=== PATIENT | male | born 1975 | race Caucasian/White ===

== ENCOUNTER 2022-06-20 07:41 | Outpatient (CLI) | payer BC, SELFPAY ==
[2022-06-20 13:32] LABS: Albumin* 4.4 g/dL (3.3-5.0); Chloride* 103 mmol/L (96-114); Potassium* 4.1 mmol/L (3.6-5.1); Sodium* 140 mmol/L (135-149)
[2022-06-20 13:34] LABS: Bilirubin Total* 0.3 mg/dL (0.1-1.5); Carbon Dioxide* 30 mmol/L (20-32); Cholesterol* 152 mg/dL (90-199); Creatinine* 0.9 mg/dL (0.5-1.5); Estimated Glomerular Filt Rate 105 ml/min
[2022-06-20 13:35] LABS: Alanine Aminotransferase* 40 U/L (4-50); Alkaline Phosphatase* 61 U/L (40-150); Aspartate Amino Transferase* 29 U/L (12-35); Blood Urea Nitrogen* 20 mg/dL (5-24); Calcium* 9.2 mg/dL (8.4-10.6); Glucose* 99 mg/dL (60-115); HDL Cholesterol* 51 mg/dL (>=40); LDL Cholesterol Calculated 76 mg/dL (<100); Total Protein* 7.2 g/dL (6.0-8.3); Triglycerides* 124 mg/dL (40-149)
[2022-06-20 14:06] LABS: PSA Screen* 0.56 ng/mL (0.10-4.00)
== END 2022-06-20 07:42 | disposition home or self-care (01) ==
LOC: FRMLAB 07:41
PROVIDERS: PCP Physician Assistant Medical; Visit Provider Physician Assistant Medical
DX: Z00.00 Encounter for general adult medical examination without abnormal findings (principal); I10 Essential (primary) hypertension; E78.2 Mixed hyperlipidemia; K21.9 Gastro-esophageal reflux disease without esophagitis; Z12.5 Encounter for screening for malignant neoplasm of prostate
CPT/HCPCS: 80053; 80061; 84153

== ENCOUNTER 2023-08-22 08:42 | Outpatient (CLI) | payer BC, SELFPAY | END 2023-08-22 08:43 | disposition home or self-care (01) | LOC: NFLDREF 08-24 20:07 | PROVIDERS: PCP Physician Assistant Medical; Referring Provider Physician Assistant Medical; Visit Provider Physician Assistant Medical | DX: E78.2 Mixed hyperlipidemia (principal); I10 Essential (primary) hypertension; Z12.5 Encounter for screening for malignant neoplasm of prostate | CPT/HCPCS: 80053; 80061; 84153 ==

== ENCOUNTER 2024-02-08 14:52 | Emergency (ER) | payer BC, SELFPAY ==
[2024-02-08 14:56] VITALS: BP 146/78; PULSE 96; RESP 17; TEMP 35.9; O2SAT 96; BMI 34.9
--- NOTE | 2024-02-08 15:08 | ED.ABDPAIN ---
HPI - Abdominal Pain General Time Seen by Provider: 15:08 Date Seen: 02/08/24 Chief Complaint: Abdominal Pain Stated Complaint: abdominal pain right side Time Seen by Provider: 02/08/24 15:08 Source: patient Mode of arrival: ambulatory Limitations: no limitations History of Present Illness HPI narrative: Yimi is a very pleasant 48-year-old gentleman with a history of hypertension, EYAD, longstanding GERD who comes to the emergency room with abdominal pain. Patient notes the onset of abdominal pain this week that has been gradually worsening. Today it has been constant. It is worsened by movement and he notes that he had a lot of pain as he was hitting bumps in the car on the way here. It is also worsened by oral intake. He has not had fever or chills. He denies constipation or diarrhea but does note that his stools have been waxy looking and vp patient in color. He has a remote history of abdominal surgery with a hernia when he was younger. No subsequent problems from this. Denies dysuria or hematuria. Notes that over the past few weeks his GERD has been worse than normal and he has had a really poor taste in his mouth. Does endorse feeling like he is bloated over the last week. Movement definitely increases his discomfort. He is wanting to stay as still as possible. No medications for pain at this point. Last ate at 1000 hours. Was drinking water upon his arrival here. I have asked him to abstain from any p.o. from this point on Related Data Home Medications Medication Instructions Recorded Confirmed aspirin 81 mg chewable tablet 81 mg PO QDAY 06/03/22 08/26/23 cholecalciferol (vitamin D3) 25 25 mcg PO QDAY 06/03/22 08/26/23 mcg (1,000 unit) capsule famotidine 10 mg tablet 10 mg PO QDAY 06/03/22 08/26/23 Previous Rx's Medication Instructions Recorded lisinopril 40 mg tablet 40 mg PO QDAY #30 tabs 01/16/23 simvastatin 20 mg tablet 20 mg PO QPM #90 tabs 08/26/23 omeprazole 20 mg capsule,delayed 20 mg PO QDAY #90 caps 12/16/23 release hydrochlorothiazide 25 mg tablet 25 mg PO QAM #90 tabs 01/02/24 Allergies Allergy/AdvReac Type Severity Reaction Status Date / Time No Known Drug Allergies Allergy Verified 02/08/24 17:36 Review of Systems Status of ROS Reports: 10 or more systems reviewed and unremarkable except as noted in History and below Narrative No personal or familial l problems with anesthesia in the past. Const Denies: fever, chills or change in weight Eyes Denies: change in vision ENMT Denies: throat pain, neck pain or difficulty swallowing Cardio Denies: chest pain or shortness of breath with exertion Resp Reports: cough (Mild and nonproductive); Denies: shortness of breath GI Denies: difficulty swallowing Denies: painful urination or urinary frequency Musculo Denies: neck pain Integ/Breast Denies: rash Neuro Denies: headache PFSH PFSH Medical History Seizure (04/05/10) ?R56.9 - Unspecified convulsions (ICD-10) Cellulitis ?L03.90 - Cellulitis, unspecified (ICD-10) Pedal edema ?R60.0 - Localized edema (ICD-10) Nonhealing ulcer of left lower extremity ?L97.929 - Non-pressure chronic ulcer of unspecified part of left lower leg with unspecified severity (ICD-10) Radial styloid tenosynovitis of left hand ?M65.4 - Radial styloid tenosynovitis [de Quervain] (ICD-10) Left otitis media with effusion ?H65.92 - Unspecified nonsuppurative otitis media, left ear (ICD-10) Headache ?R51.9 - Headache, unspecified (ICD-10) Fatigue ?R53.83 - Other fatigue (ICD-10) Daytime somnolence ?R40.0 - Somnolence (ICD-10) Surgical History History of vasectomy (02/19/10) ?Z98.52 - Vasectomy status (ICD-10) History of third molar tooth extraction ?K08.409 - Partial loss of teeth, unspecified cause, unspecified class (ICD-10) History of right inguinal hernia repair (02/19/10) ?Z98.890 - Other specified postprocedural states (ICD-10) ?Z87.19 - Personal history of other diseases of the digestive system (ICD-10) History of esophagogastroduodenoscopy (EGD) ?Z98.890 - Other specified postprocedural states (ICD-10) History of colonoscopy ?Z98.890 - Other specified postprocedural states (ICD-10) Family History Father Cancer Prostate cancer Maternal Grandmother Coronary artery disease Maternal Grandfather Coronary artery disease Paternal Grandfather Stroke Family/Other Diabetes Other High blood pressure Social History Narrative: Alcohol ingestion, 1-4 drinks/week Does not use illicit drugs Has 2 children Non-smoker Smoking Status: Never smoker How often do you have a drink containing alcohol: monthly or less How often do you have six or more drinks on one occasion: Never AUDIT-C Alcohol total score: 1 Non-prescribed substance use: denies use Little interest or pleasure in doing things: not at all Feeling down, depressed, or hopeless: not at all Exam Narrative: Exam Narrative: Alert and oriented. Very stoic in appearance. External ears eyes nose clear. Oral cavity with moist mucous membranes. Dentition is intact. Posterior oropharynx is clear. Neck is supple without lymphadenopathy. Heart with regular rate and rhythm and lungs are clear. Abdomen shows tenderness right upper quadrant. Positive Gamez sign. Moving all extremities. Bowel sounds are present. Const: Vital Signs, click to edit/add: Vital Signs - 24 hr 02/08/24 14:56 02/08/24 17:55 02/08/24 19:01 Temperature 96.6 F L Pulse Rate [Pulse Oximeter] 96 69 66 Respiratory Rate 17 16 16 Blood Pressure [Ri ght Upper Arm] 146/78 H 120/70 124/77 Pulse Oximetry 96 98 97 Oxygen Delivery Me thod Room Air Room Air Room Air Documenting provider has reviewed patient's vital signs: yes Course Course ED Course: Differential diagnosis includes but is not limited to cholecystitis, cholelithiasis, biliary colic, pancreatitis, gastritis, diverticulitis, colitis. Recommend at this time placement of IV, fluids normal saline 1 L, Toradol 15 mg IV as well as blood draw to include CBC, comprehensive panel, direct bilirubin, lactate . Abdominal ultrasound pending. Reevaluation(s) Reevaluation #1: Abdominal ultrasound negative for acute gallbladder findings. Patient is noted to be somewhat improved with the Toradol. Will order abdominal CT at this time. Vital Signs Vital signs: Initial Vital Signs Temperature 96.6 F L 02/08/24 14:56 Temperature Source Temporal Artery Scan 02/08/24 14:56 Pulse Rate 96 02/08/24 14:56 Respiratory Rate 17 02/08/24 14:56 Blood Pressure 146/78 H 02/08/24 14:56 Blood Pressure Mean 100 02/08/24 14:56 Pulse Oximetry 96 02/08/24 14:56 Oxygen Delivery Method Room Air 02/08/24 14:56 Vital Signs Temperature 96.6 F L 02/08/24 14:56 Pulse Rate 96 02/08/24 14:56 Respiratory Rate 17 02/08/24 14:56 Blood Pressure 146/78 H 02/08/24 14:56 Pulse Oximetry 96 02/08/24 14:56 Oxygen Delivery Method Room Air 02/08/24 14:56 Temperature 96.6 F L 02/08/24 14:56 Pulse Rate 66 02/08/24 19:01 Respiratory Rate 16 02/08/24 19:01 Blood Pressure 124/77 02/08/24 19:01 Pulse Oximetry 97 02/08/24 19:01 Oxygen Delivery Method Room Air 02/08/24 19:01 Medications Administered Medications: Discontinued Medications Generic Name Dose Route Start Last Admin Trade Name Freq PRN Reason Stop Dose Admin Sodium Chloride 1,000 mls @ 1,000 mls/hr 02/08/24 15:36 02/08/24 17:07 0.9 % Sodium Chloride 1000 Ml IV 02/08/24 16:35 Infused .Q1H ALIYA Infusion Ketorolac Tromethamine 15 mg 02/08/24 15:24 02/08/24 15:38 Ketorolac 15 Mg/Ml Inj IVP 02/08/24 15:25 15 mg ONCE ONE Administration MDM - Abdominal Pain MDM Narrative Medical decision making narrative: 1. Abdominal pain-patient's history to strongly suggested biliary colic but an ultrasound was negative, vital signs and laboratory values are reassuring and abdominal CT did not show any evidence of cholecystitis. It did however show increased stool retention. Will treat patient for constipation at this time. He may also have a musculoskeletal component to this discomfort. Have offered Flexeril 10 mg p.o. t.i.d. p.r.n. 15. With no refills out of her [employer] machine. Did state that patient should not drive if using this medication or should be using alcohol as this can be sedating. Given his history of EYAD also recommend his CPAP if on Flexeril even if just napping. Recommend MiraLax twice daily until stools are soft for the increased stool burden. Follow-up with primary MD if not improved. At that time would suggest a HIDA scan to rule out biliary colic. 2. Disposition-home at this time. Return for worsening symptoms and as needed. Prior to discharge given the lack of findings we did do an EKG which showed sinus rhythm without any acute ST or T-wave changes as well as a troponin which was negative. I have very low suspicion that there is underlying cardiac involvement in this but given the fact that we really had no positive test today I felt it cabello to rule this out. Medical Records Attestation: I reviewed the patient's medical records. Lab Data Attestation: I reviewed the patient's lab results. Labs: Lab Results 02/08/24 02/08/24 02/08/24 Range/Units 15:33 15:38 18:50 WBC 7.69 (4.50-11.00) K/uL RBC 4.61 (4.30-5.90) m/uL Hgb 14.2 (13.5-17.5) gm/dL Hct 42.3 (37.0-53.0) % MCV 92 (80-100) fL MCH 31 (26-34) pg MCHC 34 (32-36) gm/dL RDW Coeff of Nena 11.9 (11.5-15.5) % Plt Count 313 (140-440) K/uL Neut % (Auto) 65.2 (42.0-72.0) % Lymph % (Auto) 19.4 L (20-44) % [place] % (Auto) 10.1 (0.0-11.0) % Eos % (Auto) 4.2 (0.0-7.0) % Baso % (Auto) 0.1 (0.0-3.0) % Neut # (Auto) 5.01 (1.7-7.0) K/uL Lymph # (Auto) 1.50 (0.90-2.90) K/uL [place] # (Auto) 0.80 (0.00-0.90) K/UL Eos # (Auto) 0.32 (0.00-0.50) K/uL Baso # (Auto) 0.01 (0.00-0.30) K/uL Abs Immat Gran (auto) 0.08 (0.00-0.30) K/uL Imm/Tot Granulo (auto) 1.0 % Sodium 139 (135-149) mmol/L Potassium 3.8 (3.6-5.1) mmol/L Chloride 102 (96-114) mmol/L Carbon Dioxide 30 (20-32) mmol/L Anion Gap 7 (7-15) mEq/L BUN 17 (7-30) mg/dL Creatinine 0.7 (0.5-1.5) mg/dL Estimated Creat Clear 134.46 Estimated GFR 112 ml/min Glucose 92 (60-115) mg/dL Lactate 1.2 (0.5-1.9) mmol/L Calcium 9.5 (8.4-10.6) mg/dL Total Bilirubin 0.6 (0.1-1.5) mg/dL Direct Bilirubin 0.2 (0.0-0.5) mg/dL AST 28 (12-35) U/L ALT 36 (4-50) U/L Alkaline Phosphatase 61 (40-150) U/L C-Reactive Protein < 0.5 L (0.5-1.0) mg/dL Total Protein 8.0 (6.0-8.3) g/dL Albumin 4.5 (3.3-5.0) g/dL Lipase 48 (23-300) U/L Urine Color (Yellow) Urine Appearance (Clear) Urine pH (5.0-8.5) Ur Specific [place] (1.000-1.030) Urine Protein (Negative) Urine Glucose (UA) (Negative) Urine Ketones (Negative) Urine Blood (Negative) Urine Nitrite (Negative) Urine Bilirubin (Negative) Urine Urobilinogen (0.2-1.0) Ur Leukocyte Esterase (Negative) SARS-CoV-2 (PCR) Negative SARS-CoV-2 (Negative) Influenza Type A (PCR) Negative PCR FLU A (Negative) Influenza Type B (PCR) Negative PCR FLU B (Negative) RSV (PCR) Negative PCR RSV (Negative) POC Troponin I 0.00 L (0.01-0.04) ng/ml 02/08/24 Range/Units Unknown WBC (4.50-11.00) K/uL RBC (4.30-5.90) m/uL Hgb (13.5-17.5) gm/dL Hct (37.0-53.0) % MCV (80-100) fL MCH (26-34) pg MCHC (32-36) gm/dL RDW Coeff of Nena (11.5-15.5) % Plt Count (140-440) K/uL Neut % (Auto) (42.0-72.0) % Lymph % (Auto) (20-44) % Caswell % (Auto) (0.0-11.0) % Eos % (Auto) (0.0-7.0) % Baso % (Auto) (0.0-3.0) % Neut # (Auto) (1.7-7.0) K/uL Lymph # (Auto) (0.90-2.90) K/uL [place] # (Auto) (0.00-0.90) K/UL Eos # (Auto) (0.00-0.50) K/uL Baso # (Auto) (0.00-0.30) K/uL Abs Immat Gran (auto) (0.00-0.30) K/uL Imm/Tot Granulo (auto) % Sodium (135-149) mmol/L Potassium (3.6-5.1) mmol/L Chloride (96-114) mmol/L Carbon Dioxide (20-32) mmol/L Anion Gap (7-15) mEq/L BUN (7-30) mg/dL Creatinine (0.5-1.5) mg/dL Estimated Creat Clear Estimated GFR ml/min Glucose (60-115) mg/dL Lactate (0.5-1.9) mmol/L Calcium (8.4-10.6) mg/dL Total Bilirubin (0.1-1.5) mg/dL Direct Bilirubin (0.0-0.5) mg/dL AST (12-35) U/L ALT (4-50) U/L Alkaline Phosphatase (40-150) U/L C-Reactive Protein (0.5-1.0) mg/dL Total Protein (6.0-8.3) g/dL Albumin (3.3-5.0) g/dL Lipase (23-300) U/L Urine Color Yellow (Yellow) Urine Appearance Clear (Clear) Urine pH 7.0 (5.0-8.5) Ur Specific [place] 1.015 (1.000-1.030) Urine Protein Negative (Negative) Urine Glucose (UA) Negative (Negative) Urine Ketones Negative (Negative) Urine Blood Negative (Negative) Urine Nitrite Negative (Negative) Urine Bilirubin Negative (Negative) Urine Urobilinogen 0.2 (0.2-1.0) Ur Leukocyte Esterase Negative (Negative) SARS-CoV-2 (PCR) (Negative) Influenza Type A (PCR) (Negative) Influenza Type B (PCR) (Negative) RSV (PCR) (Negative) POC Troponin I (0.01-0.04) ng/ml Imaging Data US - abdomen: Attestation: I have reviewed the pertinent imaging results. My impression: I do not note any gallstones Radiologist's impression: The lung bases are clear. The liver is normal in attenuation without intrahepatic biliary ductal dilatation. The portal vein is patent. The gallbladder is unremarkable without evidence of radiopaque calculus. There is no significant common biliary ductal dilatation or abrupt cut off. The spleen is normal in enhancement and size. The stomach and duodenum are grossly unremarkable. The pancreas is normal in enhancement without significant atrophy. The adrenal glands are unremarkable. Cystic changes of the left kidney with otherwise preserved corticomedullary differentiation. No evidence of distal obstructive calculus or hydronephrosis. Piqu-xv-ebchwvrr stool seen throughout the colon with decompressed appearance of the distal colon. The appendix is unremarkable. There is no significant mesenteric, retroperitoneal, or pelvic sidewall lymph nodes. The aorta is nonaneurysmal. There is no significant atherosclerotic disease appreciated. The solid pelvic viscera are grossly unremarkable. There is no free fluid or free air. There is mild diastasis of the rectus muscles with a small fat containing umbilical hernia. Prior right inguinal hernia repair is again seen with calcified mesh. The lumbar vertebral body heights are grossly maintained in satisfactory alignment without evidence of displaced fracture, lytic or blastic lesion. Impression: No acute intraabdominal abnormality is appreciated. Mild to moderate stool seen throughout the colon. ECG Data Attestation: I personally reviewed and interpreted this ECG as follows: ECG interpretation date: 02/08/24 Interpretation: EKG by my read shows sinus rhythm at a rate of 65. I do not note any acute ST or T-wave changes. Isolated Q-wave and T-wave inversion in lead 3. QT intervals W[place] intervals within normal limits. No previous EKG for comparison. Discharge Plan Discharge Clinical Impression: Abdominal pain Qualifiers: Abdominal location: right upper quadrant Qualified Code(s): R10.11 - Right upper quadrant pain Patient Disposition: Home, Self-Care Condition: Improved Additional Instructions: Recommend follow-up with primary provider. If your still experiencing pain after the use of MiraLax suggests undergoing test called HIDA scan. MiraLax 1 dose twice a day until you have loose stools. You have a moderate amount of stool in the abdomen at this time. Flexeril is a muscle relaxant that she can use for discomfort as I do believe that your pain has a musculoskeletal component. This will make you sleepy so please wear your CPAP if you are taking this medication. You should not drive if your on this medication. Seek medical attention for fever, worsening symptoms and as needed. Prescriptions: No Action lisinopril 40 mg tablet 40 mg PO QDAY Qty: 30 12RF simvastatin 20 mg tablet 20 mg PO QPM Qty: 90 3RF famotidine 10 mg tablet 10 mg PO QDAY aspirin 81 mg tablet,chewable 81 mg PO QDAY cholecalciferol (vitamin D3) 25 mcg (1,000 unit) capsule 25 mcg PO QDAY omeprazole 20 mg capsule,delayed release(DR/EC) 20 mg PO QDAY Qty: 90 2RF hydrochlorothiazide 25 mg tablet 25 mg PO QAM Qty: 90 3RF Follow Up/Referrals: Mark Anthony De La Paz PA-C [Primary Care Provider] - Stand Alone Forms: [employer] Info Instructions
[2024-02-08 15:10] LABS: Appearance Urine Clear (Clear); Bilirubin Urine Negative (Negative); Blood Urine Negative (Negative); Color Urine Yellow (Yellow); Glucose Urine Negative (Negative); Ketones Urine Negative (Negative); Leukocyte Esterase Urine Negative (Negative); Nitrite Urine Negative (Negative); Protein Urine Negative (Negative); Specific Gravity Urine 1.015 (1.000-1.030); Urobilinogen Urine 0.2 (0.2-1.0)
--- NOTE | 2024-02-08 15:24 | US_ITS ---
Patient: CARLOS CORRAL Facility:?[facility] Patient ID:?[id number] Site Patient ID:?[id number]. Site :?1975 Study:?US-Abdomen RUQ-02/08/2024 4:34:49 PM Ordering Physician:? Final Report: INDICATION Pain. COMPARISON 01/22/2022, and CT dated 01/18/2022. TECHNIQUE Ultrasound abdomen right upper quadrant. FINDINGS No nodularity of the liver contour. Diffuse hyperechogenicity seen in the liver compared to the renal cortex although no definite reduction in through transmission. Two tiny hyperechoic foci seen in the inferior portion of the right hepatic lobe, similar in appearance. No intra or extrahepatic biliary duct dilatation. The liver measures 15.1 cm. The common bile duct measures 3 mm. No gallbladder distention or gallbladder wall thickening. No pericholecystic fluid. IMPRESSION 1. Negative for cholecystitis. 2. Probable hepatic steatosis. 3. Tiny hyperechoic foci inferior right hepatic lobe without definite change, most likely small hemangiomas. DW/Dictated by: Geo Eagle MD @ 02/08/2024 5:05:00 PM Signed by:?Geo Eagle MD @02/08/2024 5:13:23 PM (Electronic Signature)
[2024-02-08] MEDS: 0.9 % SODIUM CHLORIDE 1000 ml 1,000 ML IV (15:38)
[2024-02-08] MEDS: KETOROLAC 15 MG/ML inj IVP (15:38)
[2024-02-08 15:42] LABS: Lactate* 1.2 mmol/L (0.5-1.9)
[2024-02-08 15:44] LABS: Basophils Absolute Auto 0.01 K/uL (0.00-0.30); Basophils Percent Auto 0.1 % (0.0-3.0); Eosinophils Absolute Auto 0.32 K/uL (0.00-0.50); Eosinophils Percent Auto 4.2 % (0.0-7.0); Hematocrit 42.3 % (37.0-53.0); Hemoglobin* 14.2 gm/dL (13.5-17.5); Immature Granulocytes Abs Auto 0.08 K/uL (0.00-0.30); Lymphocytes Percent Auto 19.4 % (20-44); Mean Corpuscular HGB Conc 34 gm/dL (32-36); Mean Corpuscular Hemoglobin 31 pg (26-34); Mean Corpuscular Volume 92 fL (80-100); Monocytes Percent Auto 10.1 % (0.0-11.0); Neutrophils Absolute Auto 5.01 K/uL (1.7-7.0); Neutrophils Percent Auto 65.2 % (42.0-72.0); Platelet Count* 313 K/uL (140-440); RDW Coefficient of Variation % 11.9 % (11.5-15.5); Red Blood Count 4.61 m/uL (4.30-5.90); White Blood Count* 7.69 K/uL (4.50-11.00)
[2024-02-08 15:47] LABS: Slide Review Reflex No
[2024-02-08 16:01] LABS: Albumin* 4.5 g/dL (3.3-5.0); Chloride* 102 mmol/L (96-114)
[2024-02-08 16:02] LABS: Potassium* 3.8 mmol/L (3.6-5.1); Sodium* 139 mmol/L (135-149)
[2024-02-08 16:04] LABS: Creatinine* 0.7 mg/dL (0.5-1.5); Est. Creatinine Clearance* 134.46; Estimated Glomerular Filt Rate 112 ml/min
[2024-02-08 16:05] LABS: Alanine Aminotransferase* 36 U/L (4-50); Alkaline Phosphatase* 61 U/L (40-150); Anion Gap 7 mEq/L (7-15); Aspartate Amino Transferase* 28 U/L (12-35); Bilirubin Direct* 0.2 mg/dL (0.0-0.5); Bilirubin Total* 0.6 mg/dL (0.1-1.5); Blood Urea Nitrogen* 17 mg/dL (7-30); Calcium* 9.5 mg/dL (8.4-10.6); Carbon Dioxide* 30 mmol/L (20-32); Glucose* 92 mg/dL (60-115); Lipase* 48 U/L (23-300)
[2024-02-08 16:10] LABS: C Reactive Protein* < 0.5 mg/dL (0.5-1.0)
[2024-02-08 16:23] LABS: PCR FLU A Negative PCR FLU A (Negative); PCR FLU B Negative PCR FLU B (Negative); PCR RSV Negative PCR RSV (Negative); SARS PCR* Negative SARS-CoV-2 (Negative)
--- NOTE | 2024-02-08 17:17 | CT_ITS ---
Patient: CARLOS CORRAL Facility:?[facility] Patient ID:?[id number] Site Patient ID:?[id number]. Site :?1975 Study:?CT-Abdomen/Pelvis 100CC ISOVUE 370-02/08/2024 5:35:43 PM Ordering Physician:?DR. GRAY Final Report: Indication: Epigastric and right upper quadrant pain Technique: Volumetric multidetector CT images of the abdomen and pelvis were obtained after the administration of intravenous contrast. 100 cc Isovue 370 low osmolar intravenous contrast Comparison: CT abdomen and pelvis January 18, 2022 Findings: The lung bases are clear. The liver is normal in attenuation without intrahepatic biliary ductal dilatation. The portal vein is patent. The gallbladder is unremarkable without evidence of radiopaque calculus. There is no significant common biliary ductal dilatation or abrupt cut off. The spleen is normal in enhancement and size. The stomach and duodenum are grossly unremarkable. The pancreas is normal in enhancement without significant atrophy. The adrenal glands are unremarkable. Cystic changes of the left kidney with otherwise preserved corticomedullary differentiation. No evidence of distal obstructive calculus or hydronephrosis. Mofv-yn-mpduynsa stool seen throughout the colon with decompressed appearance of the distal colon. The appendix is unremarkable. There is no significant mesenteric, retroperitoneal, or pelvic sidewall lymph nodes. The aorta is nonaneurysmal. There is no significant atherosclerotic disease appreciated. The solid pelvic viscera are grossly unremarkable. There is no free fluid or free air. There is mild diastasis of the rectus muscles with a small fat containing umbilical hernia. Prior right inguinal hernia repair is again seen with calcified mesh. The lumbar vertebral body heights are grossly maintained in satisfactory alignment without evidence of displaced fracture, lytic or blastic lesion. Impression: No acute intraabdominal abnormality is appreciated. Mild to moderate stool seen throughout the colon. Please note that all CT scans at this facility use dose modulation, iterative reconstruction, and/or weight-based dosing when appropriate to reduce radiation dose to as low as reasonably achievable. Dictated by Flavio Maya MD @ 02/08/2024 6:00:49 PM Signed by:?Flavio Maya MD @02/08/2024 6:00:49 PM (Electronic Signature)
[2024-02-08 17:55] VITALS: BP 120/70; PULSE 69; RESP 16; O2SAT 98
[2024-02-08 19:01] VITALS: BP 124/77; PULSE 66; RESP 16; O2SAT 97
== END 2024-02-08 19:19 | disposition home or self-care (01) ==
PROVIDERS: Emergency Provider Family Medicine; PCP Physician Assistant Medical
DX: R10.11 Right upper quadrant pain (principal)
CPT/HCPCS: 36415; 74177; 76705; 80053; 81003; 82248; 83605; 83690; 84484; 85025; 86140; 87631; 93005; 96374; 99284; 99285; J1885; J7030; Q9967

== ENCOUNTER 2024-03-04 11:44 | Outpatient (CLI) | payer BC, SELFPAY ==
--- NOTE | 2024-03-04 12:00 | NM_ITS ---
Patient: CARLOS CORRAL Facility:?[facility] Patient ID:?[id number] Site Patient ID:?[id number]. Site :?1975 Study:?NM-Gallbladder Procedure HIDA w/ GBEF-03/04/2024 3:30:37 PM Ordering Physician:?SHAKIRA PAGE Final Report: INDICATION: Right upper quadrant abdominal pain TECHNIQUE: 5.41 mCi Tc-99m Mebrofenin was injected intravenously. Images of the liver, gallbladder and abdomen were obtained for 45 minutes. CCK was then administered and imaging continued for an additional 27 minutes. COMPARISON: CT 02/08/2024 FINDINGS: There is good uptake of activity by the hepatocytes. There is visualization of the biliary tree, gallbladder and small bowel. In response to 2.36mcg CCK administration, there is a normal gallbladder ejection fraction of 46 percent. IMPRESSION: 1. Normal study. There is no evidence of acute or chronic cholecystitis. 2. Normal gallbladder ejection fraction of 46 percent. Dictated by Ernesto Jesus MD @ 03/05/2024 9:49:42 AM Signed by:?Ernesto Jesus MD @03/05/2024 9:49:42 AM (Electronic Signature)
== END 2024-03-04 11:45 | disposition home or self-care (01) ==
LOC: NM 11:45
PROVIDERS: PCP Physician Assistant Medical; Visit Provider Family Medicine
DX: R10.11 Right upper quadrant pain (principal)
CPT/HCPCS: 78227; A9537; J2805

== ENCOUNTER 2024-03-12 08:00 | Outpatient (CLI) | payer BC, SELFPAY ==
--- NOTE | 2024-03-12 08:15 | FL_ITS ---
Patient: CARLOS CORRAL Facility:?[facility] Patient ID:?[id number] Site Patient ID:?[id number] Site :?1975 Study:?XRay-Abdomen ESOPHAGRAM W/ ANA MARCO-03/12/2024 8:54:30 AM Ordering Physician:KAVITHA Final Report: Technique: Double-contrast esophagram performed after the uneventful administration of effervescent crystals and thick barium. Fluoroscopy time 1 minute 17 seconds. Indication: Right upper quadrant pain rule out hiatal hernia Comparison: None. Findings: Esophagus: Normal motility. Normal mucosa. Normal passage of contrast material. No hiatal hernia. Gastroesophageal reflux: Mild. Impression: Mild reflux noted. No hernia. Dictated by Ernesto Jesus MD @ 03/15/2024 9:04:47 AM Signed by:?Ernesto Jesus MD @03/15/2024 9:04:47 AM (Electronic Signature)
== END 2024-03-12 08:01 | disposition home or self-care (01) ==
LOC: RAD 08:01
PROVIDERS: PCP Physician Assistant Medical; Visit Provider Family Medicine
DX: R10.11 Right upper quadrant pain (principal); K21.9 Gastro-esophageal reflux disease without esophagitis
CPT/HCPCS: 74220

== ENCOUNTER 2024-10-14 07:50 | Outpatient (CLI) | payer BC, SELFPAY | END 2024-10-14 07:51 | disposition home or self-care (01) | LOC: NFLDREF 10-15 08:43 | PROVIDERS: PCP Physician Assistant Medical; Referring Provider Physician Assistant Medical; Visit Provider Physician Assistant Medical | DX: E78.5 Hyperlipidemia, unspecified (principal); I10 Essential (primary) hypertension; Z12.5 Encounter for screening for malignant neoplasm of prostate | CPT/HCPCS: 80053; 80061; G0103 ==